=== PATIENT | female | born 1990 | race American Indian/Alaskan Native ===

== ENCOUNTER 2020-09-30 09:58 | Outpatient (CLI) | payer OTHER | END 2020-09-30 12:04 | disposition home or self-care (01) | LOC: LAB 09:58 → APU 11:30 → LAB 12:04 | PROVIDERS: ATTEND Obstetrics & Gynecology | DX: O26.893 Other specified pregnancy related conditions, third trimester (principal); Z3A.32 32 weeks gestation of pregnancy; Z67.21 Type B blood, Rh negative | CPT/HCPCS: 86850; 86900; 86901; 96372; J2790 ==

== ENCOUNTER 2020-11-09 16:52 | Inpatient (IN) | payer MEDICAID, OTHER ==
[2020-11-09] MEDS ORDERED: LACTATED RINGERS 1,000 ML IV SCH ×3 (18:30→19:15)
[2020-11-09 18:31] LABS: Hematocrit 30.6 % (30.3-42.9); Hemoglobin 10.3 gm/dl (10.1-14.3); Mean Corpuscular HGB Conc 34 % (30-34); Mean Corpuscular Volume 87 fl (79-97); Platelet Count 178 K/mm3 (140-440); Red Blood Count 3.52 M/mm3 (3.65-5.03); Red Cell Distribution Width 14.8 % (13.2-15.2)
[2020-11-09] MEDS ORDERED: BICITRA ORAL LIQD 30ML PO SCH (19:01)
[2020-11-09] MEDS ORDERED: FAMOTIDINE 20 MG/2 ML INJ IV SCH (19:01)
[2020-11-09] MEDS ORDERED: METOCLOPRAMIDE 10 MG/2 ML INJ IV SCH (19:01)
--- NOTE | 2020-11-09 19:33 | History and Physical Report ---
History of Present Illness Date of examination: 11/09/20 Date of admission: 11/09/20 16:52 Chief complaint: breech ay 38 weeks with decreased amniotic fluid. History of present illness: This is Dr. Busby dictating history and physical on patient she need for more chi ef complaint multiple large fibroids breech presentation at 38 weeks with decreased amniotic fluid. We received a consultation from a PA who recommended the patient needed to have a section on tonight rather than waiting 2 days. The patient had at least 10 visits blood type is B- antibody screen was positive hematocrit 32% rubella was immune VDRL was nonreactive hepatitis B was negative HIV test was negative hemoglobin electrophoresis was normal Chlamydia was negative gonorrhea was negative varicella-zoster was nonimmune. Rubella was immune VDRL was nonreactive HIV test was negative chlamydia and gonorrhea tests were negative repeat hematocrit was 32.7% diabetic screen was 102 group B strep test is not in the chart VDRL was nonreactive Her family medical history is positive for lung cancer. Her genetic screen was negative except for her having a fibroid uterus she has no known drug allergies past medical history none reproductive history her ketamine was 12 x 20 x 10 since her first . Social history patient finished 11th grade she denies alcohol or drug use she also denies smoking. She is self- employed. Her is a [employer] group B strep test was negative ultrasound done at [facility] was consistent with decreased amniotic fluid volume. And the recommendation was that the patient have a section today rather than waiting 2 days. And then she also has a breech presentation. Uterine growth from the [facility] was 37.5 weeks biophysical profile was 8 out of 8. Decreased movements and decreased increase pressure assist with having a section on tonight. Past History Past Medical History: other (Fibroids) Past Surgical History: no surgical history [employer] History: other (Fibroids) Family/Genetic History: other (Lung cancer) Social history: - Obstetrical History Expected Date of Delivery: 11/18/20 Actual Gestation: 38 Week(s) 5 Day(s) : 1 Para: 0 Hx # Term Pregnancies: 0 Number of Pregnancies: 0 Spontaneous Abortions: 0 Induced : 0 Number of Living Children: 0 Medications and Allergies Allergies Allergy/AdvReac Type Severity Reaction Status Date / Time No Known Allergies Allergy Verified 09/30/20 11:46 Active Meds: Active Medications Citric Acid/Sodium Citrate (Bicitra Oral Liqd 30ml) 30 ml PO ONCE ONE Stop: 11/09/20 20:01 Famotidine (Famotidine 20 Mg/2 Ml Inj) 20 mg IV ONCE ONE Stop: 11/09/20 20:01 Lactated Ringer's (Lactated Ringers) 1,000 mls @ 125 mls/hr IV DIRECT EDY Last Admin: 11/09/20 18:43 Dose: 125 mls/hr Documented by: Lactated Ringer's (Lactated Ringers) 1,000 mls @ 2,250 mls/hr IV PREOP EDY Stop: 11/10/20 19:42 Oxytocin/Sodium Chloride (Pitocin/Ns 30 Unit/500ml) 30 units in 500 mls @ 0 ml s/hr IV TITR EDY; Protocol Cefazolin Sodium (Ancef/Sterile Water 2 Gm/20 Ml) 2 gm in 20 mls @ 80 mls/hr IV PREOP NR; Protocol Stop: 11/10/20 19:59 Lactated Ringer's (Lactated Ringers) 1,000 mls @ 2,250 mls/hr IV PREOP EDY Stop: 11/10/20 19:42 Oxytocin/Sodium Chloride (Pitocin/Ns 30 Unit/500ml) 30 units in 500 mls @ 0 mls/hr IV TITR EDY; Protocol Metoclopramide HCl (Metoclopramide 10 Mg/2 Ml Inj) 10 mg IV ONCE ONE Stop: 11/09/20 20:01 Review of Systems All systems: negative - Vital Signs Vital signs: Vital Signs Pulse Pulse Ox 89 93 11/09/20 17:32 11/09/20 17:32 Temp Pulse Resp BP Pulse Ox 70 20 102/61 100 11/09/20 19:23 11/09/20 17:34 11/09/20 17:34 11/09/20 19:23 - Physical Exam Breasts: Cardiovascular: Regular rate, Normal S1, Normal S2 Lungs: Positive: Clear to auscultation, Normal air movement Abdomen: Positive: normal appearance, soft, normal bowel sounds. Negative: distention, tenderness Genitourinary (Female): Positive: normal external genitalia, normal perenium Vulva: both: normal Vagina: Positive: normal moisture. Negative: discharge Cervix: Negative: lesion, discharge Uterus: Positive: normal size, normal contour Adnexa: both: normal Anus/Rectum: Positive: normal perianal skin, heme negative. Negative: rectal mass, hemorrhoids Extremities: Deep Tendon Reflex Grade: Normal +2 - Obstetrical FHR: category 1, category 2 Uterine Contraction Monitor Mode: External Uterine Contraction Pattern: Irregular Uterine Contraction Intensity: Mild Results Result Diagrams: 11/09/20 17:54 Abnormal lab results 11/09/20 Range/Units 17:54 RBC 3.52 L (3.65-5.03) M/mm3 All other labs normal. Assessment and Plan 30-week intrauterine with breech presentation with decreased amniotic fluid. Occasional heart rate deceleration. Plan a primary low transverse section tonight.
--- NOTE | 2020-11-09 19:42 | Anesthesia Day of Surgery ---
Anesthesia Day of Surgery - Day of Surgery Patient Examined: Yes Patient H&P Reviewed: Yes Patient is NPO: Yes (12pm) Beta Blockers: No Cardiac Clearance: No Pulmonary Clearance: No Dashawn's Test: N/A
--- NOTE | 2020-11-09 19:43 | Anesthesia Consultation ---
Anesthesia Consult and Med Hx Date of service: 11/09/20 - Airway Anesthetic Teeth Evaluation: Poor ROM Head & Neck: Adequate Mental/Hyoid Distance: Adequate Mallampati Class: Class II Intubation Access Assessment: Probably Good - Pulmonary Exam CTA: Yes - Cardiac Exam Cardiac Exam: RRR - Pre-Operative Health Status ASA Pre-Surgery Classification: ASA2 Proposed Anesthetic Plan: Spinal - Pulmonary Hx Smoking: No Hx Asthma: No Hx Respiratory Symptoms: No SOB: No COPD: No Home Oxygen Therapy: No Hx Pneumonia: No Hx Sleep Apnea: No - Cardiovascular System Hx Hypertension: No Hx Coronary Artery Disease: No Hx Heart Attack/AMI: No Hx Angina: No Hx Percutaneous Transluminal Coronary Angioplasty (PTCA): No Hx Cardia Arrhythmia: No Hx Pacemaker: No Hx Internal Defibrillator: No Hx Valvular Heart Disease: No Hx Heart Murmur: No Hx Peripheral Vascular Disease: No - Central Nervous System Hx Neuromuscular Disorder: No Hx Seizures: No CVA: No Hx Back Pain: Yes Hx Psychiatric Problems: No - Gastrointestinal Hx Ulcer: No Hx Gastroesophageal Reflux Disease: Yes - Endocrine Hx Renal Disease: No Hx End Stage Renal Disease: No Hx Cirrhosis: No Hx Liver Disease: No Hx Insulin Dependent Diabetes: No Hx Non-Insulin Dependent Diabetes: No Hx Thyroid Disease: No Hx Hypothyroidism: No Hx Hyperthyroidism: No - Hematic Hx Anemia: No Hx Sickle Cell Disease: No - Other Systems Hx Alcohol Use: No Hx Substance Use: No Hx Cancer: No Hx Obesity: No
[2020-11-09] MEDS ORDERED: NALOXONE 0.4 MG/1 ML INJ IV PRN (19:45)
[2020-11-09] MEDS ORDERED: ONDANSETRON 4 MG/2 ML INJ IV PRN (19:45)
[2020-11-09] MEDS ORDERED: HYDROmorphone 1 MG/1 ML INJ IV PRN ×2 (19:45)
[2020-11-09] MEDS ORDERED: OXYTOCIN DRIP 30 UNITS/500 ML BAG IV SCH ×2 (20:00)
[2020-11-09] MEDS ORDERED: METOCLOPRAMIDE 10 MG/2 ML INJ IV ONE (20:00)
[2020-11-09] MEDS ORDERED: FAMOTIDINE 20 MG/2 ML INJ IV ONE ×2 (20:00→23:10)
[2020-11-09] MEDS ORDERED: BICITRA ORAL LIQD 30ML PO ONE (20:00)
[2020-11-09] MEDS ORDERED: ceFAZolin/Water 2 GM/20 ML 2 GM/20 ML SYRINGE IV NR (20:00)
[2020-11-09] MEDS ORDERED: METOCLOPRAMIDE 10 MG/2 ML INJ ONE (23:10)
[2020-11-09] MEDS ORDERED: BICITRA ORAL LIQD 30ML ONE (23:10)
[2020-11-09] MEDS ORDERED: PHENYLEPHRINE/NS 1,000 MCG/10 ML SYRINGE (OR USE) IV ONE (23:28)
[2020-11-09] MEDS ORDERED: ONDANSETRON 4 MG/2 ML INJ ONE (23:28)
[2020-11-10] MEDS ORDERED: PHENYLEPHRINE/NS 1,000 MCG/10 ML SYRINGE (OR USE) IV ONE (00:42)
[2020-11-10] MEDS ORDERED: KETOROLAC 30 MG/1 ML INJ ONE (00:46)
[2020-11-10] MEDS ORDERED: SODIUM CHLORIDE 0.9% 500 ML 500 ML IV ONE (00:56)
[2020-11-10] MEDS ORDERED: SODIUM CHLORIDE 0.9% 500 ML 500 ML ONE (01:13)
[2020-11-10] MEDS ORDERED: HYDROmorphone 1 MG/1 ML INJ ONE ×2 (01:53)
[2020-11-10] MEDS ORDERED: WITCH HAZEL/ GLYCERIN PAD TP PRN (02:13)
[2020-11-10] MEDS ORDERED: NALOXONE 0.4 MG/1 ML INJ IV PRN (02:13)
[2020-11-10] MEDS ORDERED: LANOLIN/ZINC/DIMETHICONE (LANSINOH) 7 GM TP PRN (02:13)
[2020-11-10] MEDS ORDERED: MORPHINE 4 MG/1 ML INJ IV PRN (02:13)
[2020-11-10] MEDS ORDERED: BUPIVACAINE/PF (0.25%) 2.5 MG/ML 30 ML VIAL INFILTRATI ONE (02:14)
[2020-11-10] MEDS ORDERED: dexAMETHasone 20 MG/5 ML VIAL ONE (02:15)
--- NOTE | 2020-11-10 02:26 | Progress Note ---
Spinal Anesthesia Block - Spinal Anesthesia Block Start Time: 23:41 Stop Time: 23:45 Performed by:: CYNTHIA EUGENE Procedure: Patient IDed, H&P reviewed, all questions and concerns were answered, and consent was signed. Timeout was performed at bedside. Patient in sitting position. Sterile prep and drape was performed. [3] ml of 1% lidocaine skin wheal at L[3]- L [4]. Needle introducer advanced. 25 gauge spinal needle advanced. Clear, free flowing CSF. negative blood, negative paresthesia. Spinal dose given. All needles removed. Patient tolerated procedure.
--- NOTE | 2020-11-10 02:27 | Progress Note ---
Objective - Constitutional Vitals: Vital Signs - 12hr 11/09/20 11/09/20 11/09/20 17:32 17:33 17:34 Pulse Rate 89 83 85 Respiratory 20 Rate Blood Pressure 102/61 Blood Pressure 102/61 [Right] O2 Sat by Pulse 93 99 98 Oximetry 11/09/20 11/09/20 11/09/20 17:38 17:43 17:48 Pulse Rate 87 83 95 H Respiratory Rate Blood Pressure Blood Pressure [Right] O2 Sat by Pulse 98 98 99 Oximetry 11/09/20 11/09/20 11/09/20 17:53 17:58 18:03 Pulse Rate 82 81 81 Respiratory Rate Blood Pressure Blood Pressure [Right] O2 Sat by Pulse 98 98 98 Oximetry 11/09/20 11/09/20 11/09/20 18:08 18:13 18:18 Pulse Rate 73 103 H 77 Respiratory Rate Blood Pressure Blood Pressure [Right] O2 Sat by Pulse 98 97 98 Oximetry 11/09/20 11/09/20 11/09/20 18:23 18:28 18:30 Pulse Rate 82 74 72 Respiratory Rate Blood Pressure Blood Pressure [Right] O2 Sat by Pulse 98 100 93 Oximetry 11/09/20 11/09/20 11/09/20 18:33 18:38 18:43 Pulse Rate 81 86 65 Respiratory Rate Blood Pressure Blood Pressure [Right] O2 Sat by Pulse 99 99 99 Oximetry 11/09/20 11/09/20 11/09/20 18:48 18:53 18:58 Pulse Rate 75 74 76 Respiratory Rate Blood Pressure Blood Pressure [Right] O2 Sat by Pulse 98 99 98 Oximetry 11/09/20 11/09/20 11/09/20 19:03 19:08 19:13 Pulse Rate 93 H 76 79 Respiratory Rate Blood Pressure Blood Pressure [Right] O2 Sat by Pulse 100 99 99 Oximetry 11/09/20 11/09/20 11/09/20 19:18 19:23 19:28 Pulse Rate 85 70 80 Respiratory Rate Blood Pressure Blood Pressure [Right] O2 Sat by Pulse 99 100 100 Oximetry 11/09/20 11/09/20 11/09/20 19:33 19:37 19:38 Pulse Rate 72 81 74 Respiratory Rate Blood Pressure 97/70 Blood Pressure [Right] O2 Sat by Pulse 100 100 Oximetry 11/09/20 11/09/20 11/09/20 20:50 22:18 22:23 Pulse Rate 103 H 59 L 71 Respiratory Rate Blood Pressure Blood Pressure [Right] O2 Sat by Pulse 90 80 L 99 Oximetry 11/09/20 11/09/20 11/09/20 22:28 22:33 22:38 Pulse Rate 69 68 67 Respiratory Rate Blood Pressure Blood Pressure [Right] O2 Sat by Pulse 98 98 100 Oximetry 11/09/20 11/09/20 11/09/20 22:43 22:44 22:48 Pulse Rate 69 65 73 Respiratory Rate Blood Pressure Blood Pressure [Right] O2 Sat by Pulse 98 94 99 Oximetry 11/09/20 11/09/20 11/09/20 22:53 22:58 22:59 Pulse Rate 63 63 77 Respiratory Rate Blood Pressure Blood Pressure [Right] O2 Sat by Pulse 98 97 93 Oximetry 11/09/20 11/09/20 11/09/20 23:03 23:08 23:13 Pulse Rate 67 72 67 Respiratory Rate Blood Pressure Blood Pressure [Right] O2 Sat by Pulse 99 97 95 Oximetry - Labs CBC & Chem 7: 11/09/20 17:54 Labs: Abnormal lab results 11/09/20 11/09/20 Range/Units 17:54 17:54 RBC 3.52 L (3.65-5.03) M/mm3 Crossmatch See Detail Regional Anesthesia Block - Regional Anesthesia Block Start Time: 02:23 Stop Time: 02:25 Performed By:: CYNTHIA EUGENE Procedure: Patient consented for TAP block for post surgical pain management. Patient identified, monitors placed, and time out performed. TAP identified bilaterally via ultrasound. Skin prepped bilaterally with [chlorhexidine] and [22g stimuplex] needle advanced to the TAP. [Marcaine 0.25% 35ml] injected under ultrasound guidance on the [left] side. [Marcaine 0.25% 35ml] injected under ultrasound guidance on the [right] side. Negative aspiration every 5mL, No change in heart rate or rhythm. Patient tolerated the procedure well. No apparent complications seen.
--- NOTE | 2020-11-10 02:30 | Procedure Note ---
Date of procedure: 11/10/20 Pre-op diagnosis: breech, decreased amniotic fluid,38 wks iup. Post-op diagnosis: other (Adhesions on the back of the uterus. Multiple fibroids.) Procedure: Time of surgery was 1 hour and 50 minutes. Procedure was a primary classical section, partial myomectomy Preoperative diagnosis breech presentation multiple fibroids variable decelerations, Postop diagnosis same and adhesions on the posterior aspect of the uterus. Findings liveborn female infant Apgars 1 6 and 8 weight 5 pounds 9.6 ounces. Complications excessive blood loss because of multiple fibroids and the need for a primary classical section and the need for multiple myomectomies. Procedure done in the following manner. The patient was taken to the OR given adequate spinal anesthetic for the procedure she was then given a Gamble catheter prepped and draped in usual manner a Pfannenstiel incision was made in the lower abdomen we entered abdominal cavity anatomically. At this point because of the multiple fibroids and the fact that she had an apparent breech of transverse lie presentation we elected to do a low vertical incision which had to be extended into a classical infection because of difficulty getting the baby out because of the large fibroids that preclude precluded access to the baby. Once we could get access to the baby the placenta was then delivered in front of the baby because the placenta was attached anteriorly. We then delivered the baby with somewhat of a struggle however we did deliver the baby and Apgars were 1 6 and 8 so the baby did have to have some resuscitation. And because the patient had multiple fibroids once we had cleaned out the uterine cavity it was apparent that we had to do some myomectomies in order to be able to close the uterus. So we used a Bovie to and to remove the fibroids on anterior portion of the uterus and we remove the removed approximately 5 fibroids of the uterus. Because we did have to resect these fibroids the patient had more than the usual amount of blood loss and so we decided to transfuse the patient intraoperatively. Subsequently the incision in the midline on the uterus was repaired with interrupted with continuous 0 Vicryl suture and some were repaired with interrupted 0 Vicryl. We were able to reapproximate the uterus there was minimal bleeding at the end of the procedure we did place Interceed over the midline in classical incision on the uterus. The tubes and ovaries appeared to be normal. Gutters were cleaned with fluids and aspirated there was no bleeding and blood in the cul-de-sac. All instruments removed from abdominal care instrument count needle lap and sponge count was correct. We did note some filmy adhesions on the posterior aspect of the uterus which could be from chronic PID or from endometriosis. Anterior abdominal peritoneum was repaired with running 2-0 chromic the fascia was closed with a running locking #0 Vicryl and tube portion 1 for the transverse portion of the incision and midline portion of the incision because we had to continue the uterus the abdominal wall to to get access to the baby. The subcutaneous layer was closed with running 2-0 Vicryl skin was repaired with skin anne and draped with Telfa 4 x 4 and tape the patient tolerated procedure well she was then returned to recovery room in stable condition end of operative note. Anesthesia: spinal Surgeon: LEX CRYSTAL Estimated blood loss: other (2215) IV fluids: 1,100 (Type and cross 2 units of packed cells started 1 unit of packed cells and OR room.) Urine output: 200 Pathology: list (multiple fibroids) Specimen disposition: to lab Condition: stable Disposition: PACU
[2020-11-10] MEDS ORDERED: OXYTOCIN DRIP 30 UNITS/500 ML BAG IV SCH (03:00)
[2020-11-10] MEDS: ceFAZolin/NS 1 GM/50 ML 1 GM/50 ML BAG IV SCH ×2 (06:12→12:30)
[2020-11-10 08:04] LABS: Hematocrit 35.7 % (30.3-42.9); Hemoglobin 11.8 gm/dl (10.1-14.3)
[2020-11-10] MEDS: oxyCODONE /ACETAMINOPHEN 5-325MG TAB PO PRN ×3 (08:28→18:31)
--- NOTE | 2020-11-10 08:58 | Post Anesthesia Evaluation ---
- Post Anesthesia Evaluation Patient Participated: Yes Airway Patent: Yes Stable Respiratory Function: Yes Nausea/Vomiting: No Temp > 96.8F: Yes Pain Manageable: Yes Adequeate Hydration: Yes Anesthesia Complications: No Block Receding Appropriately: Yes Patient on Ventilator: No
[2020-11-10 15:40] LABS: Hematocrit 29.5 % (30.3-42.9); Hemoglobin 9.8 gm/dl (10.1-14.3)
[2020-11-10] MEDS ORDERED: SIMETHICONE 80 MG CHEW TAB PO PRN (18:46)
[2020-11-10] MEDS: KETOROLAC 30 MG/1 ML INJ IV PRN (22:16)
[2020-11-11] MEDS: oxyCODONE /ACETAMINOPHEN 5-325MG TAB PO PRN ×3 (03:17→21:54)
--- NOTE | 2020-11-11 09:11 | Progress Note ---
Assessment and Plan 30-week intrauterine with breech presentation with decreased amniotic fluid. Occasional heart rate deceleration. Plan a primary low transverse section tonight.pt is doing well. Subjective - Subjective Date of service: 11/11/20 Principal diagnosis: breech, multiple fibroids. decreased amniotic fluid. Interval history: This is Dr. Busby dictating history and physical on patient she need for more chief complaint multiple large fibroids breech presentation at 38 weeks with decreased amniotic fluid. We received a consultation from a PA who recommended the patient needed to have a section on tonight rather than waiting 2 days. The patient had at least 10 visits blood type is B- antibody screen was positive hematocrit 32% rubella was immune VDRL was nonreactive hepatitis B was negative HIV test was negative hemoglobin electrophoresis was normal Chlamydia was negative gonorrhea was negative varicella-zoster was nonimmune. Rubella was immune VDRL was nonreactive HIV test was negative chlamydia and gonorrhea tests were negative repeat hematocrit was 32.7% diabetic screen was 102 group B strep test is not in the chart VDRL was nonreactive Her family medical history is positive for lung cancer. Her genetic screen was negative except for her having a fibroid uterus she has no known drug allergies past medical history none reproductive history her ketamine was 12 x 20 x 10 since her first . Social history patient finished 11th grade she denies alcohol or drug use she also denies smoking. She is self- employed. Her is a [employer] group B strep test was negative ultrasound done at [facility] was consistent with decreased amniotic fluid volume. And the recommendation was that the patient have a section today rather than waiting 2 days. And then she also has a breech presentation. Uterine growth from the [facility] was 37.5 weeks biophysical profile was 8 out of 8. Decreased movements and decreased increase pressure assist with having a section on tonight. Patient reports: appetite normal, voiding normally, pain well controlled, ambulating normally Objective - Vital Signs Latest vital signs: Vital Signs Temp Pulse Resp BP BP Pulse Ox Pulse Ox 11/11/20 03:17 18 11/11/20 00:00 98.0 F 62 18 100/56 100 11/10/20 22:16 18 11/10/20 19:50 99 11/10/20 15:35 99.0 F 65 20 96/50 100 11/10/20 14:40 97.9 F 67 16 99/59 100 11/10/20 11:29 97.6 F 73 20 102/64 100 Intake and Output 11/10/20 11/11/20 11/11/20 23:59 07:59 15:59 Intake Total 120 120 Output Total 700 Balance -580 120 Intake: Oral 120 120 Output: Urine 700 Void 700 Other: Total, Intake Amount 120 120 Total, Output Amount 400 # Voids Void 3 1 - Exam Breasts: Present: normal Abdomen: Present: normal appearance, soft, normal bowel sounds Uterus: Present: firm Extremities: Present: normal Incision: Present: normal - Labs Labs: Abnormal lab results 11/09/20 11/10/20 Range/Units 17:54 14:38 Hgb 9.8 L (10.1-14.3) gm/dl Hct 29.5 L D (30.3-42.9) % Crossmatch See Detail
[2020-11-11] MEDS: KETOROLAC 30 MG/1 ML INJ IV PRN (15:19)
[2020-11-11] MEDS: FERROUS SULFATE 325 MG TAB PO SCH (21:48)
[2020-11-12] MEDS: oxyCODONE /ACETAMINOPHEN 5-325MG TAB PO PRN ×3 (05:51→21:50)
[2020-11-12] MEDS: FERROUS SULFATE 325 MG TAB PO SCH (10:30)
--- NOTE | 2020-11-12 18:11 | Progress Note ---
Assessment and Plan A: S/P primary LTCS with partial myomectomy Asymptomatic anemia P: Continue routine pp care Fe prescribed Advised foods high in Fe D/C home tomm if stable Subjective - Subjective Date of service: 11/12/20 Principal diagnosis: s/p primary c/s with partial myomectomy Patient reports: appetite normal, voiding normally, pain well controlled, flatus, ambulating normally [place]: doing well, in NICU, bottle feeding Objective - Vital Signs Latest vital signs: Vital Signs Temp Pulse Resp BP Pulse Ox Pulse Ox 11/12/20 16:02 98.9 F 83 16 100/60 99 11/12/20 08:00 98 11/12/20 07:53 98.7 F 82 20 100/62 100 11/12/20 05:51 20 11/12/20 00:10 98.2 F 78 20 102/66 100 11/11/20 21:54 20 98 Intake and Output 11/12/20 11/12/20 11/12/20 06:59 14:59 22:59 Intake Total 240 560 Balance 240 560 Intake: Oral 240 560 Other: Total, Intake Amount 240 200 # Voids Void 4 1 - Exam Breasts: Present: normal Abdomen: Present: normal appearance, soft, normal bowel sounds Vulva: both: normal Uterus: Present: normal, firm, fundal height below umbilicus Extremities: Present: normal Incision: Present: normal, dry, intact
--- NOTE | 2020-11-12 20:28 | Discharge Summary ---
Providers - Providers Date of Admission: 11/09/20 16:52 Date of discharge: 11/13/20 Attending physician: LEX CRYSTAL MD Primary care physician: LEX CRYSTAL MD Hospitalization Reason for admission: section, other (breech, multiple fibroids) Delivery: Procedure: primary low transverse Episiotomy: none Laceration: none Incision: normal, dry, intact Other procedures: none complications: none Discharge diagnosis: IUP at term delivered baby: female Hospital course: Pt was admitted for a primary c/s r/t breech presentation and multiple fibroids. She had no pp complications. See H&P, delivery note, and pp summary. Condition at discharge: Stable Disposition: 01 HOME / SELF CARE / HOMELESS Plan - Discharge Medications Prescriptions: Ferrous Sulfate [Feosol 325 MG tab] 325 mg PO QDAY #120 tablet Ibuprofen 600 mg PO Q6H PRN #30 capsule PRN Reason: Menstrual Cramps - Provider Discharge Summary Activity: routine, no sex for 6 weeks, no heavy lifting 4 weeks, no strenuous exercise Diet: routine Instructions: routine Additional instructions: [] Smoking cessation referral if applicable(refer to patient education folder for contact #) [] Refer to [facility]'s [facility] Booklet Call your doctor immediately for: * Fever > 100.5 * Heavy vaginal bleeding ( >1 pad per hour) * Severe persistent headache * Shortness of breath * Reddened, hot, painful area to leg or breast * Drainage or odor from incision. * Keep incision clean and dry at all times and follow doctor's instructions regarding bathing/showering - Follow up plan Follow up: LEX CRYSTAL MD [Primary Care Provider] - 14 Days
[2020-11-13] MEDS: oxyCODONE /ACETAMINOPHEN 5-325MG TAB PO PRN ×2 (04:03→09:39)
[2020-11-13] MEDS: FERROUS SULFATE 325 MG TAB PO SCH (09:39)
[2020-11-13 16:47] VITALS: BP 99/69
== END 2020-11-13 17:30 | disposition home or self-care (01) | DRG 765 ==
LOC: APU 16:52 → OB 11-10 05:19
PROC: 10D00Z1 Extraction of Products of Conception, Low, Open Approach (ICD-10-PCS; principal; 2020-11-10)
PROC: 0UB90ZZ Excision of Uterus, Open Approach (ICD-10-PCS; 2020-11-10)
PROC: 3E0T3BZ Introduction of Anesthetic Agent into Peripheral Nerves and Plexi, Percutaneous Approach (ICD-10-PCS; 2020-11-10)
PROC: 30233N1 Transfusion of Nonautologous Red Blood Cells into Peripheral Vein, Percutaneous Approach (ICD-10-PCS; 2020-11-10)
PROC: 30233S1 Transfusion of Nonautologous Globulin into Peripheral Vein, Percutaneous Approach (ICD-10-PCS; 2020-11-11)
DX: O32.1XX0 Maternal care for breech presentation, not applicable or unspecified (principal); O41.8X30 Other specified disorders of amniotic fluid and membranes, third trimester, not applicable or unspecified; Z37.0 Single live birth; Z3A.38 38 weeks gestation of pregnancy; O76 Abnormality in fetal heart rate and rhythm complicating labor and delivery; Z20.822 Contact with and (suspected) exposure to COVID-19; O99.62 Diseases of the digestive system complicating childbirth; K21.9 Gastro-esophageal reflux disease without esophagitis; O34.13 Maternal care for benign tumor of corpus uteri, third trimester; D25.9 Leiomyoma of uterus, unspecified; O90.81 Anemia of the puerperium; D64.9 Anemia, unspecified
CPT/HCPCS: 36415; 59025; 85014; 85018; 85027; 85461; 86592; 86850; 86870; 86900; 86901; 86920; 88305; 99211; G0378; C1765; G0463; J0690; J1100; J1170; J1885; J2370; J2405; J2790; J3490; J7040; J7120; P9016; U0003